=== PATIENT | male | born 1970 | race African-American/Black ===

== ENCOUNTER 2022-06-26 09:17 | Day surgery (SDC) | payer BC ==
[2022-06-25 11:06] VITALS: BMI 34.7
[2022-06-26] MEDS ORDERED: Fentanyl 250 MCG/5 ML VIAL ONE (09:45)
[2022-06-26] MEDS ORDERED: Bupivacaine HCl 0.5%/Epinephrine 1:200,000/PF 30 ml Vial ONE (10:04)
[2022-06-26] MEDS ORDERED: Thrombin 5000 UNITS/5 ML VIAL ONE (10:04)
[2022-06-26] MEDS ORDERED: Vancomycin 1 GM VIAL ONE ×2 (10:04→13:13)
[2022-06-26] MEDS ORDERED: Neomycin-Polymyxin 1 ML AMP ONE (10:04)
[2022-06-26] MEDS ORDERED: CEFAZOLIN 2 GM VIAL ONE (10:14)
[2022-06-26] MEDS ORDERED: Sodium Chloride 0.9% 100 ML ONE (10:14)
[2022-06-26] MEDS ORDERED: NEOSTIGMINE 3 MG/3 ML SYR 3 MG/3 ML SYRINGE ONE (10:40)
[2022-06-26] MEDS ORDERED: Dexamethasone 20 MG/5 ML VIAL ONE (10:40)
[2022-06-26] MEDS ORDERED: Ondansetron PF 4 MG/2 ML Vial ONE ×2 (10:40→17:39)
[2022-06-26] MEDS ORDERED: PROPOFOL 200 MG/20 ML VIAL ONE (10:40)
[2022-06-26] MEDS ORDERED: Phenylephrine 10 MG/ML VIAL ONE (10:40)
[2022-06-26] MEDS ORDERED: Ketorolac Tromethamine 30 MG/ML VIAL ONE (10:40)
[2022-06-26] MEDS ORDERED: GLYCOPYRROLATE/PF 0.2 MG/ML VIAL ONE (10:40)
[2022-06-26] MEDS ORDERED: Rocuronium Bromide 10 MG/ML (10ML VIAL) ONE (10:40)
[2022-06-26] MEDS ORDERED: ePHEDrine 50 MG/ML VIAL ONE (10:40)
[2022-06-26] MEDS ORDERED: Promethazine HCl 25 MG/ML VIAL IVPB PRN (14:28)
[2022-06-26] MEDS ORDERED: Ondansetron HCl/PF 4 MG/2 ML Vial IVP PRN (14:28)
[2022-06-26] MEDS ORDERED: Promethazine HCl 25 MG/ML VIAL IM PRN (14:28)
[2022-06-26] MEDS ORDERED: Tamsulosin HCl 0.4 MG CAP ONE (14:50)
[2022-06-26] MEDS ORDERED: HYDROcodone/Acetaminophen 5/325 mg Tablet ONE (18:48)
[2022-06-26] MEDS ORDERED: Promethazine HCl 25 MG/ML VIAL ONE (18:55)
== END 2022-06-26 21:45 | disposition home or self-care (01) ==
LOC: SDC 09:17
PROVIDERS: ATTEND Neurological Surgery
DX: M48.062 Spinal stenosis, lumbar region with neurogenic claudication (principal); M51.16 Intervertebral disc disorders with radiculopathy, lumbar region; I10 Essential (primary) hypertension; G62.9 Polyneuropathy, unspecified; M54.2 Cervicalgia; Z79.899 Other long term (current) drug therapy
CPT/HCPCS: J1100; J1885; J2370; J2405; J2550; J2704; J3010; J3370; J3490